=== PATIENT | male | born 1980 | race Caucasian/White ===

== ENCOUNTER → 2019-01-24 08:27 | Outpatient (CLI) | payer OTHER ==
--- NOTE | 2019-01-24 09:55 | NUR ---
TIME OUT PERFORMED @ [address] ALDRIDGE & TAMMI SAMPSON RT(R), PATIENT AND PROCEDURE VERIFIED
== END | disposition home or self-care (01) ==
LOC: EDSEX 08:27 → D.RAD 08:27
PROVIDERS: ATTEND Orthopaedic Surgery
DX: S43.431A Superior glenoid labrum lesion of right shoulder, initial encounter (principal)